=== PATIENT | female | born 1995 | race African-American/Black ===

== ENCOUNTER 2016-05-06 21:14 | Emergency (ER) | payer OTHER ==
[~2016-05-06] VITALS: Ht 152.4 cm; Wt 55.0 kg
[~2016-05-06 21:14] MED LIST: DOXY1CAP91 PO; IBUP-232 PO; METR250 PO; ONDA1TAB17 PO; ORTHTAB4 PO
[2016-05-06 21:16] VITALS: BP 114/70; PULSE 77; RESP 16; TEMP 98.5; O2SAT 100
[2016-05-06] MEDS ORDERED: [UNRECOGNIZED DRUG - OTHER] PO (21:50)
[2016-05-06 22:31] LABS: AUTOMATED NEUTROPHIL # 8.1 TH/MM3 (1.8-7.7); BASOPHIL # 0.1 TH/MM3 (0-0.2); BASOPHIL % 0.9 % (0.0-2.0); EOSINOPHIL # 0.2 TH/MM3 (0-0.4); EOSINOPHIL % 1.5 % (0.0-4.0); HEMATOCRIT 38.2 % (35.0-46.0); HEMO FLAGS DIFF FINAL; LYMPH % 17.8 % (9.0-44.0); MEAN CELL VOLUME 97.4 FL (80.0-100.0); MEAN CORPUSCULAR HEMOGLOBIN 32.1 PG (27.0-34.0); MEAN CORPUSCULAR HGB CONC 32.9 % (32.0-36.0); MONO % 8.5 % (0.0-8.0); NEUT % 71.3 % (16.0-70.0); PLATELET COUNT 306 TH/MM3 (150-450); RED BLOOD COUNT 3.92 MIL/MM3 (4.00-5.30); RED CELL DISTRIBUTION WIDTH 12.6 % (11.6-17.2); WHITE BLOOD COUNT 11.3 TH/MM3 (4.0-11.0)
[2016-05-06 22:36] LABS: BLOOD, URINE NEG (NEG); COMMENT (UR) CULT NOT INDICATED; CULTURE IF INDICATED CULT NOT INDICATED; GLUCOSE,URINE NEG (NEG); KETONE, URINE NEG (NEG); MUCUS URINE MOD /lpf (OCC); NITRITE,URINE NEG (NEG); PH, URINE 6.5 (5.0-8.5); SQUAMOUS EPITHELIAL CELL URINE 6 /hpf (0-5); URINE COLOR YELLOW (YELLW/STRAW)
[2016-05-06 22:46] LABS: BICARBONATE 26.6 MEQ/L (21.0-32.0)
--- NOTE | 2016-05-07 02:27 | PD ---
HPI Chief Complaint: Abdominal Pain Time Seen by Provider: 02:10 Travel History International Travel<30 days: No Contact w/Intl Traveler<30days: No Traveled to known affect area: No History of Present Illness HPI The patient is a 21 year old female who presents to the [facility] emergency department with a history of pelvic pain that she reports began yesterday. She reports that it is worse on the left side and radiates up slightly into her abdomen from the left side. The patient is a with one miscarriage in December 2015. She also reports having a history of PID. She was concerned about the possibility of miscarrying currently or having an ectopic . She reports that she has had nausea and vomiting related to this . She has vomited 4 times today. She denies having any vaginal bleeding. She reports that she does have a thin white vaginal discharge. The patient denies any recent fevers, cough, congestion, neck pain, chest pain, shortness of breath, vomiting, diarrhea, urinary symptoms, or neurologic symptoms. LMP 12/13. She has not had an initial ultrasound in this . [facility] Past Medical History Narrative Medical The patient's past medical history is significant for PID, miscarriage. ?: LMP: 6 WEEKS : 1 Miscarriage: 1 Past Surgical History Narrative Surgical The patient's past surgical history is reportedly none. Social History Alcohol Use: No Tobacco Use: No ("BLACK & MILD") Substance Use: No Allergies-Medications (Allergen,Severity, Reaction): Coded Allergies: No Known Allergies (Unverified , 05/07/16) Reported Meds & Prescriptions Reported Meds & Active Scripts Active Clindamycin (Clindamycin HCl) 300 Mg Cap 300 Mg PO BID 7 Days Reported [Trunatal] 1 Tab PO Narrative Medication . Review of Systems Except as stated in HPI: all other systems reviewed are Neg General / Constitutional: No: Fever Eyes: No: Visual changes HENT: No: Headaches Cardiovascular: No: Chest Pain or Discomfort Respiratory: No: Shortness of Breath Gastrointestinal: Positive: Nausea, Vomiting, Abdominal Pain Genitourinary: Positive: Pelvic Pain, Discharge, No: Urgency, Frequency, Dysuria, Vaginal Bleeding Musculoskeletal: No: Pain Skin: No Rash Neurologic: No: Weakness Psychiatric: No: Depression Endocrine: No: Polydipsia Hematologic/Lymphatic: No: Easy Bruising Physical Exam Narrative General: The patient is a well-developed well-nourished female in no acute distress.. Head and Neck exam: Head is normocephalic atraumatic. Eyes: Pupils are equal round and reactive to light. Nose: Midline septum with pink mucous membranes Mouth: Dentition unremarkable. Moist mucus membranes. Posterior oropharynx is not erythematous. No tonsillar hypertrophy. Uvula midline. Airway patent. Neck: No palpable lymphadenopathy. No nuchal rigidity. No thyromegaly. Cardiovascular: Regular rate and rhythm without murmurs, gallops, or rubs. Lungs: Clear to auscultation bilaterally. No wheezes, rhonchi, or rales. Abdomen: Soft, reported discomfort on palpation the left lower quadrant of the abdomen. No other tenderness on palpation. No guarding, rebound, or rigidity. Negative [place] sign. No tenderness on palpation of McBurney's point. Normal bowel sounds are audible. Extremities: No clubbing, cyanosis, or edema. 2+ pulses in all 4 extremities. Back: No spinous process tenderness to palpation. No costovertebral angle tenderness to palpation. Neurologic Exam: Grossly nonfocal. Skin Exam: No rash noted. Intact skin that is warm and dry. Gynecologic exam: The patient was placed in the dorsal lithotomy position. Her external genitalia were examined. She had no evidence of rash or lesions. The speculum was placed into her vagina and the cervix was identified. She had a physiologic appearing clear white discharge. No cervical friability. On Bimanual exam: she has no cervical motion tenderness. No adnexal tenderness or prominence noted on palpation. No uterine tenderness or enlargement noted on palpation. Data Data Last Documented VS Vital Signs Date Time Temp Pulse Resp B/P Pulse Ox O2 Delivery O2 Flow Rate FiO2 05/06/16 21:16 98.5 77 16 114/70 100 Room Air Orders Complete Blood Count With Diff (05/06/16 21:47) Basic Metabolic Panel (Bmp) (05/06/16 21:47) Urinalysis - C+S If Indicated (05/06/16 21:47) Ed Urine Pregnancytest Poc (05/06/16 21:47) Gc And Chlamydia Pcr (05/07/16 02:28) Complete Rh (05/07/16 02:28) Wet Prep Profile (05/07/16 02:28) Iv Access Insert/Monitor (05/07/16 02:28) Ecg Monitoring (05/07/16 02:28) Sodium Chlor 0.9% 1000 Ml Inj (Ns 1000 M (05/07/16 02:28) Ondansetron Inj (Zofran Inj) (05/07/16 02:30) Beta Hcg (Quant/Titer) (05/06/16 21:52) Us Pelvis (Ques Pr/Ect)W Trans (05/07/16 ) Labs Laboratory Tests Test 05/06/16 05/06/16 05/07/16 05/07/16 21:52 21:55 02:35 03:30 White Blood Count 11.3 TH/MM3 Red Blood Count 3.92 MIL/MM3 Hemoglobin 12.6 GM/DL Hematocrit 38.2 % Mean Corpuscular Volume 97.4 FL Mean Corpuscular Hemoglobin 32.1 PG Mean Corpuscular Hemoglobin 32.9 % Concent Red Cell Distribution Width 12.6 % Platelet Count 306 TH/MM3 Mean Platelet Volume 8.0 FL Neutrophils (%) (Auto) 71.3 % Lymphocytes (%) (Auto) 17.8 % Monocytes (%) (Auto) 8.5 % Eosinophils (%) (Auto) 1.5 % Basophils (%) (Auto) 0.9 % Neutrophils # (Auto) 8.1 TH/MM3 Lymphocytes # (Auto) 2.0 TH/MM3 Monocytes # (Auto) 1.0 TH/MM3 Eosinophils # (Auto) 0.2 TH/MM3 Basophils # (Auto) 0.1 TH/MM3 CBC Comment DIFF FINAL Differential Comment Sodium Level 136 MEQ/L Potassium Level 4.0 MEQ/L Chloride Level 103 MEQ/L Carbon Dioxide Level 26.6 MEQ/L Anion Gap 6 MEQ/L Blood Urea Nitrogen 6 MG/DL Creatinine 0.63 MG/DL Estimat Glomerular Filtration 142 ML/MIN Rate Random Glucose 88 MG/DL Calcium Level 8.6 MG/DL Human Chorionic Gonadotropin, 35536 MIU/ML Quant Urine Color YELLOW Urine Turbidity HAZY Urine pH 6.5 Urine Specific Pana 1.025 Urine Protein TRACE mg/dL Urine Glucose (UA) NEG mg/dL Urine Ketones NEG mg/dL Urine Occult Blood NEG Urine Nitrite NEG Urine Bilirubin NEG Urine Urobilinogen LESS THAN 2.0 MG/DL Urine Leukocyte Esterase NEG Urine WBC 2 /hpf Urine Squamous Epithelial 6 /hpf Cells Urine Mucus MOD /lpf Microscopic Urinalysis Comment CULT NOT INDICATED Clue Cells (Wet Prep) PRESENT Vaginal Trichomonas (Wet Prep) NONE SEEN Vaginal Yeast (Wet Prep) NONE SEEN Blood Type A POSITIVE Rho(D) Type POSITIVE MDM Medical Decision Making Medical Screen Exam Complete: Yes Emergency Medical Condition: Yes Medical Record Reviewed: Yes Interpretation(s) Last Impressions Pelvis Ultrasound 05/07/16 0000 Signed Impressions: Service Date/Time: Saturday, May 07, 2016 02:37 - CONCLUSION: 1. Viable IUP of 6 weeks and 3 days of gestational age. 2. 2 cm solid appearing area adjacent to the left ovary. This is nonspecific but may be a small endometrioma versus hemorrhagic cyst. Mendel Traore MD Differential Diagnosis Ectopic , versus miscarriage, versus cramping related to uterine growth , versus corpus luteum cyst Narrative Course During the course of the patients emergency department visit, the patients history, examination, and differential diagnosis were reviewed with the patient. The patient had IV access obtained and blood work sent for analysis. The patients laboratory studies were reviewed and remarkable for white count of 11.3, hemoglobin 12.6, platelets 306 with 71.3 neutrophils, BMP is remarkable for BUN of 6, beta hCG is 54,876, urinalysis is unremarkable. Wet prep reveals clue cells consistent with bacterial vaginosis as the cause of the patient's discharge. Blood type is A+. Radiology studies were reviewed and remarkable for ultrasound reveals a 6 week and 3 days viable intrauterine . The patient will be discharged home to follow-up with an [facility] ASSIST[facility]. The patient was given a prescription for clindamycin for bacterial vaginosis at discharge. The patient is resting comfortably and feels better, is alert and in no distress. The patients results and examination findings. The repeat examination is unremarkable and benign. The history, exam, diagnostic testing, and current condition do not suggest any significant pathology to warrant further testing, continued ED treatment, admission, or surgical evaluation at this point. The vital signs have been stable. The patient does not have uncontrollable pain, intractable vomiting, or other significant symptoms. The patient's condition is stable and appropriate for discharge. The patient will pursue further outpatient evaluation with a primary care physician or other designated or consulting physician as indicated in the discharge instructions. The patient expressed understanding and was agreeable with this plan. Diagnosis Primary Impression: Bacterial vaginosis Additional Impression: Pelvic pain affecting Referrals: Shayy Jasso MD 1 week Patient Instructions: Bacterial Vaginosis (ED), General Instructions Med/Other Pt SpecificInfo: Prescription(s) given Scripts Clindamycin 300 Mg [id number] Mg PO BID 7 Days Ref 0 Prov:Cate Yanez MD 05/07/16 Disposition: 01 DISCHARGE HOME Condition: Stable Cate Yanez MD May 07, 2016 02:27
[2016-05-07] MEDS ORDERED: SODIUM CHLOR 0.9% 1000 ML INJ 1,000 ML IV ONE (02:28)
[2016-05-07] MEDS ORDERED: ONDANSETRON HCL 4 MG/2 ML VIAL IVP ONE (02:30)
--- NOTE | 2016-05-07 03:36 | RADRPT ---
EXAM DATE/TIME: 05/07/2016 02:37 [place] COMPARISON: No previous studies available for comparison. INDICATIONS : Pelvic pain. LAB(S): Beta-hC MEDICAL HISTORY : . PID. SURGICAL HISTORY : None. ENCOUNTER: Initial ACUITY: 1 day PAIN SCORE: 5/10 LOCATION: Left pelvis MEASUREMENTS: UTERUS: 9.0 x 4.9 x 5.6 cm ENDOMETRIAL STRIPE: 17 mm RIGHT OVARY: 2.9 x 1.8 x 2.0 cm LEFT OVARY: 3.7 x 1.8 x 3.6 cm FINDINGS: UTERUS: There is a gestational sac in the endometrial cavity. There is a pole that measures 6 weeks and 3 days of gestational age. There is a heart beat at 117 beats per minute. The uterus is otherw ise unremarkable. RIGHT OVARY: Ovary contains no mass or significant cystic lesion. Few small liver cysts. LEFT OVARY: There are some follicular cysts associated with the left ovary. Solid appearing area measuring 2.0 cm . This could be a small endometrioma versus hemorrhagic cyst. MISCELLANEOUS: There is free fluid adjacent to the ovaries. CONCLUSION: 1. Viable IUP of 6 weeks and 3 days of gestational age. 2. 2 cm solid appearing area adjacent to the left ovary. This is nonspecific but may be a small endom etrioma versus hemorrhagic cyst. Mendel Traore MD on May 07, 2016 at 3:31 Board Certified Radiologist. This report was verified electronically.
[2016-05-07] MEDS ORDERED: CLIN1CAP6 PO (03:58)
[2016-05-07 04:49] LABS: CHLAMYDIA PCR NOT DETECTED (NOT DETECT); NEISSERIA PCR NOT DETECTED (NOT DETECT)
== END 2016-05-07 05:09 | disposition home or self-care (01) ==
LOC: NEPE 21:14
DX: O23.591 Infection of other part of genital tract in pregnancy, first trimester (principal); N76.0 Acute vaginitis; B96.89 Other specified bacterial agents as the cause of diseases classified elsewhere; R10.2 Pelvic and perineal pain; R11.2 Nausea with vomiting, unspecified; Z87.42 Personal history of other diseases of the female genital tract; Z3A.01 Less than 8 weeks gestation of pregnancy
CPT/HCPCS: 76700; 76817; 80048; 81001; 84702; 84703; 85025; 86901; 87210; 87491; 87591; 96374; 99284; J2405; J7030

== ENCOUNTER 2016-05-14 16:09 | Emergency (ER) | payer OTHER ==
[~2016-05-14] VITALS: Ht 152.4 cm; Wt 56.4 kg
[~2016-05-14 16:09] MED LIST changes: +CLIN1CAP6 PO; -DOXY1CAP91 PO; -IBUP-232 PO; -METR250 PO; -ONDA1TAB17 PO; -ORTHTAB4 PO; +[UNRECOGNIZED DRUG - OTHER] PO
[2016-05-14 16:12] VITALS: BP 121/58; PULSE 72; RESP 12; TEMP 97.9; O2SAT 99
[2016-05-14] MEDS ORDERED: PROM25TA5 PO (16:35)
--- NOTE | 2016-05-14 16:43 | PD ---
HPI Chief Complaint: GI Complaint Time Seen by Provider: 16:20 Travel History International Travel<30 days: No Contact w/Intl Traveler<30days: No Traveled to known affect area: No History of Present Illness HPI The patient was seen and examined in the presence of the nurse. This patient complains of nausea and vomiting. Primarily nausea but occasionally has vomiting. Duration is 2-3 days. Severity is mild to moderate. She is not having abdominal or pelvic pain or vaginal bleeding. She has a intrauterine by ultrasound done recently here on the last visit. Her first care appointment is June 11. No fever. No alleviating factors. [facility] Past Medical History ?: LMP: 03/25/2016 : 1 Miscarriage: 1 Social History Alcohol Use: No Tobacco Use: Yes ("BLACK & MILD") Substance Use: No Allergies-Medications (Allergen,Severity, Reaction): Coded Allergies: No Known Allergies (Unverified , 05/07/16) Reported Meds & Prescriptions Reported Meds & Active Scripts Active Phenergan (Promethazine HCl) 25 Mg Tab 12.5 Mg PO Q6HR PRN Clindamycin (Clindamycin HCl) 300 Mg Cap 300 Mg PO BID 7 Days Review of Systems General / Constitutional: No: Fever Eyes: No: Visual changes HENT: No: Headaches Cardiovascular: No: Chest Pain or Discomfort Respiratory: No: Shortness of Breath Gastrointestinal: Positive: Nausea, Vomiting, No: Abdominal Pain Genitourinary: No: Dysuria Musculoskeletal: No: Pain Skin: No Rash Neurologic: No: Weakness Psychiatric: No: Depression Endocrine: No: Polydipsia Hematologic/Lymphatic: No: Easy Bruising Physical Exam Narrative GENERAL: Well-nourished, well-developed patient in no apparent distress. SKIN: Warm and dry. HEAD: Atraumatic. Normocephalic. EYES: Pupils equal and round. No scleral icterus. No injection or drainage. ENT: No nasal bleeding or discharge. Mucous membranes pink and moist. NECK: Trachea midline. No JVD. CARDIOVASCULAR: Regular rate and rhythm. No murmur appreciated. RESPIRATORY: No accessory muscle use. Clear to auscultation. Breath sounds equal bilaterally. GASTROINTESTINAL: Abdomen soft, non-tender, nondistended. Hepatic and splenic margins not palpable. MUSCULOSKELETAL: No obvious deformities. No clubbing. No cyanosis. No edema. NEUROLOGICAL: Awake and alert. No obvious cranial nerve deficits. Motor grossly within normal limits. Normal speech. PSYCHIATRIC: Appropriate mood and affect; insight and judgment normal. pelvic: cervix closed,no blood,no adnexal tenderness Data Data Last Documented VS Vital Signs Date Time Temp Pulse Resp B/P Pulse Ox O2 Delivery O2 Flow Rate FiO2 05/14/16 16:12 97.9 72 12 121/58 99 MDM Medical Decision Making Medical Screen Exam Complete: Yes Emergency Medical Condition: Yes Medical Record Reviewed: Yes Differential Diagnosis Hyperemesis gravidarum, gastroenteritis, colitis Narrative Course I have reviewed the patient's electronic medical record. Reviewed her last visit here as well as her ultrasound showing IUP Patient's exam is normal. Abdomen is soft and benign and nontender. Vital signs are normal. She is euvolemic I wrote her some Phenergan to use as needed and warned her about potential sedation. She will need to accept risk of taking category C medication Recommend small frequent bland meals and increase fluids. Diagnosis Primary Impression: Nausea and vomiting during prior to 22 weeks gestation Additional Instructions: The patient was advised to follow up with their physician and return if they worsen. The patient was warned about potential sedation for the medications they will receive on prescription. Small frequent bland meals and a lot of fluids Med/Other Pt SpecificInfo: Prescription(s) given Scripts Promethazine (Phenergan)25 Mg Tab12.5 Mg PO Q6HR PRN (NAUSEA OR VOMITING) #20 TAB Ref 0 Prov:Alli Salcido MD 05/14/16 Disposition: 01 DISCHARGE HOME Condition: Stable Alli Salcido MD May 14, 2016 16:43
== END 2016-05-14 17:36 | disposition home or self-care (01) ==
LOC: NEPB 16:09
DX: O21.9 Vomiting of pregnancy, unspecified (principal); Z3A.00 Weeks of gestation of pregnancy not specified
CPT/HCPCS: 99283

== ENCOUNTER → 2016-11-24 | Emergency (ER) | payer OTHER ==
[~2016-11-24] MED LIST changes: +IBUP-232 PO; +LACTATED RINGER'S 1000 ML INJ 1,000 ML IV ONE; +LACTATED RINGER'S 1000 ML INJ 1,000 ML IV SCH; +OXYC1TAB63 PO; +PROM25TA5 PO; +SENN1TAB PO; +TERBUTALINE INJ 1 MG/ML AMP ONE; +TERBUTALINE INJ 1 MG/ML AMP SQ ONE; +TERBUTALINE INJ 1 MG/ML AMP SQ PRN; -[UNRECOGNIZED DRUG - OTHER] PO
--- NOTE | 2016-11-24 08:22 | PD ---
HPI Chief Complaint Contractions Date Seen: Nov 24, 2016 Travel History International Travel<30 Days: No Contact w/Intl Traveler<30Days: No Known Affected Area: No History of Present Illness HPI Patient is a 21 year old at 34-6/7 weeks gestation who presents today for contractions. She has been having Garza Ramirez contractions on and off for the past week, however this morning she woke up with spotting and started nikko every 510 minutes. Contractions last about 12 minutes. She denies any gush or leaking of fluid. Positive movement. She has been having sharp vaginal pains overnight. No other vaginal discharge. care with Dr. Jasso. History Past Medical History Medical History: Denies Significant Hx Obstetric History Obstetric History s/p spontaneous Past Surgical History Surgical History: No Previous Surgery Family History Family History: Negative Social History Alcohol Use: No Tobacco Use: No Substance Abuse: No Allergies-Medications (Allergen,Severity, Reaction): Coded Allergies: No Known Allergies (Unverified , 11/24/16) Home Meds Active Scripts Promethazine (Phenergan)25 Mg Tab12.5 Mg PO Q6HR PRN (NAUSEA OR VOMITING) #20 TAB Ref 0 Prov:Alli Salcido MD 05/14/16 Clindamycin 300 Mg [id number] Mg PO BID 7 Days Ref 0 Prov:Cate Yanez MD 05/07/16 Review of Systems Except as stated in HPI: all other systems reviewed are Neg General / Constitutional: No: Fever, Chills Eyes: No: Blurred Vision, Visual changes HENT: No: Headaches Cardiovascular: No: Chest Pain or Discomfort, Palpitations Respiratory: No: Short of Breath Gastrointestinal: No: Nausea, Vomiting Genitourinary: Pelvic Pain, Vaginal Bleeding, No: Dysuria, Discharge Musculoskeletal: No: Edema Psychiatric: No: Substance Abuse Physical Exam Narrative GENERAL: Well-nourished, well-developed patient. SKIN: Warm and dry. HEAD: Normocephalic and atraumatic. EYES: No scleral icterus. No injection or drainage. ENT: No nasal drainage noted. Mucous membranes pink. Airway patent. NECK: Supple, trachea midline. No JVD. CARDIOVASCULAR: Regular rate and rhythm without murmurs, gallops, or rubs. RESPIRATORY: Breath sounds equal bilaterally. No accessory muscle use. ABDOMEN/GI: Abdomen soft, non-tender, bowel sounds present, no rebound, no guarding Gravid to 34 weeks size GENITOURINARY: External Genitalia: intact and normal in appearance BUS glands: normal Cervix: posterior Dilatation: 0-1 Effacement: 0 Station: -3 Presentation: vertex Membranes: intact Uterine Contractions: q1-3min FHT's: Category: I Baseline: 140 Reactive: + Variability: moderate Decels: none EXTREMITIES: No cyanosis or edema. BACK: Nontender without obvious deformity. NEUROLOGICAL: Awake and alert. Motor and sensory grossly within normal limits. Normal speech. Data Data Vital Signs Reviewed: Yes MDM Medical Record Reviewed: Yes Narrative Course / MDM 21 year old at 34-6/7 weeks gestation. 1. IUP- Category I tracing, reassuring. Continue to monitor. 2. Contractions- No cervical dilation noted. Will give terbutaline 0.25mg SQ. dw Dr. Hammond Addendum: Contractions persisting despite Terbutaline. Will give 1L IV bolus of LR and check for cervical change in 1 hr. No cervical change noted after 1 hour. Continued contractions q3min. Will give another dose of Terbutaline 0.25mg SQ. Bedside US reassuring, EFW 5lbs 2oz Will discharge home. Diagnosis Diagnosis: Primary Impression: contractions Additional Impression: 34 weeks gestation of Disposition: DISCHARGE HOME Condition: Stable Departure Forms: Tests/Procedures, Work Release Corrine Stratton MD, R3 Nov 24, 2016 08:22
--- NOTE | 2016-11-24 11:20 | PD ---
History of Present Illness Date Seen: Nov 24, 2016 History of Present Illness Seen and OB ED baby 35 weeks tomorrow and having some contractions. She is receiving IV fluid subcutaneous her ran sedation IV. Ultrasound was done in OB ED this shows a 34 weeks size male fetus vertex weight is a 2316 g. 2 ounces. Adequate amniotic fluid noted. The fundal grade 2 placenta. Anatomy scan on baby. Baby is active on scan Julio Cesar Madden II, MD Nov 24, 2016 11:20
== END | disposition home or self-care (01) ==
LOC: HOBED 07:34
DX: O62.9 Abnormality of forces of labor, unspecified (principal); O26.853 Spotting complicating pregnancy, third trimester; Z3A.34 34 weeks gestation of pregnancy
CPT/HCPCS: 59025; 76815; 96372; 96374; 99285; J3010; J3105; J7120

== ENCOUNTER 2016-12-23 01:55 | Inpatient (IN) | payer OTHER ==
[~2016-12-23] VITALS: Ht 154.9 cm; Wt 68.9 kg
[2016-12-23] VITALS (77 sets, daily range): BP systolic 92–142; BP diastolic 36–82; PULSE 66–195; RESP 16–20; TEMP 98–99.4; O2SAT 98–100
[~2016-12-23 01:55] MED LIST changes: -IBUP-232 PO; -LACTATED RINGER'S 1000 ML INJ 1,000 ML IV ONE; -LACTATED RINGER'S 1000 ML INJ 1,000 ML IV SCH; -OXYC1TAB63 PO; -SENN1TAB PO; -TERBUTALINE INJ 1 MG/ML AMP ONE; -TERBUTALINE INJ 1 MG/ML AMP SQ ONE; -TERBUTALINE INJ 1 MG/ML AMP SQ PRN
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
[2016-12-23] MEDS: LACTATED RINGER'S 1000 ML INJ 1,000 ML IV SCH ×3 (02:46→06:41)
[2016-12-23] MEDS ORDERED: LACTATED RINGER'S 1000 ML INJ 1,000 ML IV PRN (02:46)
[2016-12-23 02:59] LABS: AUTOMATED NEUTROPHIL # 11.4 TH/MM3 (1.8-7.7); BASOPHIL # 0.1 TH/MM3 (0-0.2); BASOPHIL % 0.5 % (0.0-2.0); EOSINOPHIL # 0.1 TH/MM3 (0-0.4); HEMATOCRIT 30.6 % (35.0-46.0); HEMO FLAGS DIFF FINAL; LYMPH % 11.1 % (9.0-44.0); LYMPHOCYTE # 1.6 TH/MM3 (1.0-4.8); MEAN CELL VOLUME 98.1 FL (80.0-100.0); MEAN CORPUSCULAR HEMOGLOBIN 33.6 PG (27.0-34.0); MEAN CORPUSCULAR HGB CONC 34.3 % (32.0-36.0); MONO % 8.5 % (0.0-8.0); NEUT % 78.9 % (16.0-70.0); PLATELET COUNT 226 TH/MM3 (150-450); RED BLOOD COUNT 3.12 MIL/MM3 (4.00-5.30); RED CELL DISTRIBUTION WIDTH 12.6 % (11.6-17.2); WHITE BLOOD COUNT 14.5 TH/MM3 (4.0-11.0)
[2016-12-23] MEDS ORDERED: ONDANSETRON HCL 4 MG/2 ML VIAL IV PRN (03:00)
[2016-12-23] MEDS ORDERED: CITRIC ACID-SODIUM CITRATE LIQ 30 ML UDC PO SCH (03:00)
[2016-12-23] MEDS ORDERED: MINERAL OIL 10 ML VIAL TOPICAL PRN (03:00)
[2016-12-23] MEDS ORDERED: LIDOCAINE HCL 1% 50 ML VIAL INFIL PRN (03:00)
[2016-12-23] MEDS ORDERED: SODIUM CHLORID 0.9% 500 ML INJ 500 ML IV PRN (03:00)
[2016-12-23] MEDS ORDERED: OXYTOCIN 30 UNITS-500ML PREMIX 500 ML IV ONE ×2 (03:00→13:30)
[2016-12-23] MEDS ORDERED: LIDOCAINE HCL 1% 50 ML VIAL I-DERMAL PRN (03:00)
[2016-12-23 03:04] LABS: BLOOD, URINE MOD (NEG); COMMENT (UR) CULT NOT INDICATED; CULTURE IF INDICATED CULT NOT INDICATED; GLUCOSE,URINE NEG (NEG); KETONE, URINE 10 mg/dL (NEG); MUCUS URINE FEW /lpf (OCC); NITRITE,URINE NEG (NEG); SQUAMOUS EPITHELIAL CELL URINE 3 /hpf (0-5); URINE COLOR YELLOW (YELLW/STRAW)
[2016-12-23] MEDS ORDERED: SODIUM CHLOR 0.9% 1000 ML INJ 1,000 ML IV PRN (03:06)
[2016-12-23] MEDS ORDERED: fentaNYL 2MCG-BUPIV 0.125% INJ 100 ML ONE ×2 (03:07→09:01)
[2016-12-23] MEDS ORDERED: OXYTOCIN 30 UNITS/NS 500ML PREMIX IV SCH (03:30)
[2016-12-23] MEDS ORDERED: ePHEDrine/NS 25 MG/5 ML SYR ONE (03:50)
[2016-12-23] MEDS ORDERED: TERBUTALINE INJ 1 MG/ML AMP ONE (07:31)
--- NOTE | 2016-12-23 07:50 | PD.LABORPN ---
Subjective Subjective comfortable with epidural on O2 mask with rebreather for run of lates currently resolved Objective Vital Signs Vital Signs Date Time Temp Pulse Resp B/P (MAP) Pulse Ox O2 Delivery O2 Flow Rate FiO2 12/23/16 07:30 86 121/69 (86) 12/23/16 07:00 75 119/55 (76) 12/23/16 06:46 18 12/23/16 06:45 90 120/74 (89) 12/23/16 06:30 97 106/61 (76) 12/23/16 06:18 86 107/60 (76) 12/23/16 06:00 88 107/63 (78) 12/23/16 05:52 20 12/23/16 05:45 86 101/56 (71) 12/23/16 05:30 85 109/61 (77) 12/23/16 05:15 117/67 (84) 12/23/16 05:15 81 12/23/16 05:00 90 12/23/16 05:00 117/66 (83) 12/23/16 04:54 98.5 20 12/23/16 04:45 90 115/66 (82) 12/23/16 04:30 73 106/47 (66) 12/23/16 04:15 68 12/23/16 04:15 115/55 (75) 12/23/16 04:00 74 110/56 (74) 12/23/16 04:00 18 12/23/16 03:53 66 103/45 (64) 12/23/16 03:51 72 96/45 (62) 12/23/16 03:50 99/45 (63) 12/23/16 03:50 77 12/23/16 03:47 99/36 (57) 12/23/16 03:47 79 12/23/16 03:46 99/58 (72) 12/23/16 03:46 70 12/23/16 03:38 83 114/60 (78) 12/23/16 03:31 93 119/65 (83) 12/23/16 03:25 96 12/23/16 03:25 96 135/78 (97) 12/23/16 03:21 95 136/78 (97) 12/23/16 03:20 104 12/23/16 03:15 106 131/82 (98) 12/23/16 03:15 20 12/23/16 03:10 86 142/75 (97) 12/23/16 03:10 88 12/23/16 03:07 135/79 (97) 12/23/16 03:07 20 Objective 5/50/-1 not well applied arom meconium head eased onto cervix OP position with asynclitism EFW 7 1/2 category 2-- bears watching Weeks Gestation: 39 Gest Age Assessed Date: Dec 23, 2016 Gest Age Assessed Time: 07:49 Pt started active labor?: Yes Active labor start date: Dec 23, 2016 Active labor start time: 07:49 Medical induction of labor?: No Artificial rupture of membrane: Yes Artificial ROM date: Dec 23, 2016 Artifical ROM time: 07:49 Assessment/Plan Assessment and Plan not clear if will tolerate active labor off pitocin for now see if descends in proper position with reassuring strip at this moment some mild variables at this point-- not late in nature at this time Nithya Alves MD Dec 23, 2016 07:50
[2016-12-23] MEDS ORDERED: OXYTOCIN 10 UNIT/ML AMP ONE (12:10)
[2016-12-23] MEDS ORDERED: ceFAZolin INJ 1,000 MG VIAL ONE (12:11)
--- NOTE | 2016-12-23 12:14 | PD.LABORPN ---
Subjective Subjective comfortable with epidural not feeling contractions Objective Vital Signs Vital Signs Date Time Temp Pulse Resp B/P (MAP) Pulse Ox O2 Delivery O2 Flow Rate FiO2 12/23/16 11:40 95 12/23/16 11:35 91 12/23/16 11:34 74 103/72 (82) 12/23/16 11:32 93 92/70 (77) 12/23/16 11:30 96 12/23/16 11:25 104 12/23/16 11:24 195 103/70 (81) 12/23/16 11:20 103 12/23/16 11:15 104 12/23/16 11:10 98 12/23/16 11:05 109 12/23/16 11:00 114 12/23/16 10:55 104 12/23/16 10:50 99 12/23/16 10:45 95 12/23/16 10:40 95 12/23/16 10:37 99.3 12/23/16 10:35 96 12/23/16 10:30 90 12/23/16 10:25 87 12/23/16 10:20 91 12/23/16 10:15 85 12/23/16 10:10 80 12/23/16 10:05 97 12/23/16 10:00 102 12/23/16 09:55 99 12/23/16 09:50 83 12/23/16 09:45 95 12/23/16 09:31 92 134/67 (89) 12/23/16 08:45 17 12/23/16 08:15 18 12/23/16 08:08 98.6 12/23/16 08:00 81 113/56 (75) 12/23/16 07:45 16 12/23/16 07:30 86 121/69 (86) 12/23/16 07:00 75 119/55 (76) 12/23/16 06:46 17 12/23/16 06:46 18 12/23/16 06:45 90 120/74 (89) 12/23/16 06:30 97 106/61 (76) 12/23/16 06:18 86 107/60 (76) 12/23/16 06:00 88 107/63 (78) 12/23/16 05:52 20 12/23/16 05:45 86 101/56 (71) 12/23/16 05:30 85 109/61 (77) 12/23/16 05:15 117/67 (84) 12/23/16 05:15 81 12/23/16 05:00 90 12/23/16 05:00 117/66 (83) 12/23/16 04:54 98.5 20 12/23/16 04:45 90 115/66 (82) 12/23/16 04:30 73 106/47 (66) 12/23/16 04:15 68 12/23/16 04:15 115/55 (75) Objective minute decel likely due to tachysystole, given terb now baby is very tachycardic 180's - 200's have tried position changes, amnio infusion, and other resuscitative efforts. cervix 9 cm -2 asynclitic and possibly OP EFW 6 1/2 pounds Weeks Gestation: 39 Gest Age Assessed Date: Dec 23, 2016 Gest Age Assessed Time: 12:12 Pt started active labor?: Yes Active labor start date: Dec 23, 2016 Active labor start time: 07:49 Medical induction of labor?: No Artificial rupture of membrane: Yes Artificial ROM date: Dec 23, 2016 Artifical ROM time: 07:49 Assessment/Plan Assessment and Plan discussed with Leigh and family risks and benefits of attempting vaginal delivery in next hour vs.proceeding with expedient section tachycardia and lack of descent suggest latter is preferable reviewed indications and will proceed in 20 minutes. Nithya Alves MD Dec 23, 2016 12:14
[2016-12-23] MEDS ORDERED: ACETAMINOPHEN 1000 MG/100 ML 100 ML IV ONE (12:50)
[2016-12-23 13:15] LABS: BLOOD GAS BASE EXCESS -1.4 mmol/L (-2-2); BLOOD GAS O2 HGB SATURATION 36 % (90-100); CORD BLOOD GAS HCO3 24 mmol/L (21-29); CORD BLOOD GAS PCO2 52 mmHG (34-78); CORD BLOOD GAS PH 7.29 (7.14-7.42); CORD BLOOD GAS PO2 20 mmHG (3.0-40.0); DRAW SITE CORD BLOOD; STAT NO
[2016-12-23] MEDS ORDERED: ONDANSETRON HCL 4 MG/2 ML VIAL ONE (13:26)
[2016-12-23] MEDS ORDERED: MORPHINE SULFATE PF 5 MG/10 ML VIAL ONE (13:26)
[2016-12-23] MEDS ORDERED: ZOLPIDEM TARTRATE 5 MG TAB PO PRN (13:30)
[2016-12-23] MEDS ORDERED: oxyCODONE/ACETAMINOPHEN 5 MG/325 MG TAB PO PRN (13:30)
[2016-12-23] MEDS ORDERED: SODIUM CHLORIDE 0.9% FLUSH 10 ML FLUSH IV FLUSH PRN (13:30)
[2016-12-23] MEDS ORDERED: ACETAMINOPHEN 325 MG TAB PO PRN (13:30)
[2016-12-23] MEDS ORDERED: ONDANSETRON HCL 4 MG/2 ML VIAL IV PUSH PRN (13:30)
--- NOTE | 2016-12-23 13:41 | PD.OP ---
Operative Report Date of Surgery: Dec 23, 2016 Preoperative Diagnosis: (1) Persistent occipitoposterior position (2) Failure to progress in labor (3) 39 weeks gestation of Postoperative Diagnosis: (1) Bandl's ring (2) Persistent occipitoposterior position (3) Failure to progress in labor (4) 39 weeks gestation of Procedure: Primary low transverse section Anesthesia: Epidural Surgeon: Nithya Alves MD Obstetrics Specialist(s): Merari Swanson Resident Surgeon: Corrine Stratton MD Operation and Findings: Preoperative Diagnosis: 1. Primary low transverse delivery 2. Persistent occipitoposterior position 3. Intrauterine at 39-0/7 weeks gestation Postoperative Diagnosis: 1. Primary low transverse delivery 2. Persistent occipitoposterior position 3. Intrauterine at 39-0/7 weeks gestation 4. Bandl's Ring Procedure Primary low transverse section Anesthesia Epidural Surgeon Nithya Alves MD Co-Surgeon Corrine Stratton MD Findings Normal male infant 3230g with Apgars 8 and 9. Normal fallopian tubes, normal ovaries, normal uterus. Bandl's ring. Complications None. Counts Correct Estimated Blood Loss 500mL Fluids Crystalloids. Disposition The patient tolerated procedure well, went to recovery room in good condition. Procedure in Detail After informed consent was obtained the patient was taken to the operating room where her epidural anesthesia was found to be adequate. A Mobley catheter was already in place. She was then prepared and draped in the normal sterile fashion in the dorsal supine position with a leftward tilt. A Pfannenstiel/midline skin incision was then made with the scalpel and carried through to the underlying layer of fascia. The fascia was incised in the midline and extended laterally with the Sam scissors. The incision was then grasped with the Mary Ann clamps, elevated and the underlying rectus muscles dissected off bluntly/sharply with the Sam scissors. Attention was then turned to the inferior aspect of this incision which, in a similar fashion, was grasped, tented up with the Mary Ann clamps, and the rectus muscles dissected off bluntly/sharply with the Sam scissors. The rectus muscles were then in the midline, and the peritoneum identified, tented up, and entered bluntly using manual dissection. The peritoneal incision was then extended superiorly and inferiorly with good visualization of the bladder. A bladder flap was created then the bladder blade was inserted and the lower uterine segment was incised in a transverse fashion with the scalpel. The uterine incision was then extended laterally digitally. Meconium fluid was noted and the infant's head was noted to be in left occiput posterior presentation. The bladder blade was removed. A nuchal cord was reduced and the 's head delivered with the assistance of a Kiwi vacuum with one pop-off. Delivery of the was complicated by a Bandl's ring, however the was delivered atraumatically. Cord clamping was delayed for 45 seconds with active milking of the cord, then the cord was cut and the was handed off the field to the awaiting baby nurse. The placenta was then removed, the uterus exteriorized, and cleared of all clots and debris. The uterine incision was repaired with 0 Chromic in a running fashion. A second layer of the same suture was used in an imbricating fashion to obtain excellent hemostasis. The abdominal cavity was cleaned with normal saline irrigation and a moist lap and the uterus was replaced into the abdomen. The gutters were cleared of all clots and debris and the hysterotomy site was noted to be hemostatic. The muscle was then reapproximated with 3-0 Vicryl and the fascia was then reapproximated with 0 Vicryl in a running fashion. The subcutaneous tissue was closed with 3-0 Plain and the skin was closed with 4-0 Monocryl in a subcuticular fashion noting excellent hemostasis. The patient tolerated the procedure well. Sponge, lap and needle counts were correct times two. The patient was taken to the recovery room in stable condition. Corrine Stratton MD, R3 Dec 23, 2016 13:41
[2016-12-23] MEDS ORDERED: ePHEDrine/NS 25 MG/5 ML SYR IV PRN (15:30)
[2016-12-23] MEDS ORDERED: fentaNYL 2MCG-BUPIV 0.125% 100 ML EPIDURAL SCH (15:30)
[2016-12-23] MEDS ORDERED: EPIDURAL-DIPHENHYDRAMINE HCL 50 MG CAP PO PRN (15:30)
[2016-12-23] MEDS ORDERED: EPIDURAL-DO NOT ADMINISTER ANTICOAGULANTS PRN (15:30)
[2016-12-23] MEDS ORDERED: NO SYSTEM NARCOTICS PRN (15:30)
[2016-12-23] MEDS ORDERED: EPIDURAL-NALOXONE HCL 0.4 MG/ML AMP IV PRN (15:30)
[2016-12-23] MEDS ORDERED: EPIDURAL-DIPHENHYDRAMINE HCL 50 MG/ML VIAL IV PUSH PRN (15:30)
[2016-12-23] MEDS ORDERED: DO NOT ADMINISTER ANTICOAGULANTS PRN (15:30)
[2016-12-23] MEDS ORDERED: EPIDURAL-NO SYSTEMIC NARCOTICS PRN (15:30)
[2016-12-23] MEDS: IBUPROFEN 600 MG TAB PO PRN (17:18)
[2016-12-23] MEDS ORDERED: LACTATED RINGER'S 1000 ML INJ 1,000 ML IV SCH (18:19)
[2016-12-23] MEDS ORDERED: SODIUM CHLORIDE 0.9% FLUSH 10 ML FLUSH IV FLUSH SCH (21:00)
[2016-12-23] MEDS: oxyCODONE/ACETAMINOPHEN 5 MG/325 MG TAB PO PRN (21:11)
[2016-12-23] MEDS: DOCUSATE SODIUM 50 MG/SENNA 8.6 MG TAB PO PRN (21:11)
[2016-12-23] MEDS ORDERED: OXYTOCIN 30 UNITS-500ML PREMIX 500 ML IV PRN (23:30)
[2016-12-24 00:15] VITALS: BP 121/73; PULSE 81; RESP 16; TEMP 98.3
[2016-12-24] MEDS: IBUPROFEN 600 MG TAB PO PRN ×4 (01:19→23:13)
[2016-12-24] MEDS: oxyCODONE/ACETAMINOPHEN 5 MG/325 MG TAB PO PRN ×5 (01:19→23:16)
[2016-12-24 04:00] VITALS: BP 105/72; PULSE 79; RESP 16; TEMP 98.1
[2016-12-24 04:27] LABS: AUTOMATED NEUTROPHIL # 14.8 TH/MM3 (1.8-7.7); BASOPHIL % 0.2 % (0.0-2.0); EOSINOPHIL # 0.1 TH/MM3 (0-0.4); EOSINOPHIL % 0.7 % (0.0-4.0); HEMATOCRIT 28.6 % (35.0-46.0); HEMO FLAGS DIFF FINAL; LYMPH % 7.6 % (9.0-44.0); LYMPHOCYTE # 1.4 TH/MM3 (1.0-4.8); MEAN CELL VOLUME 99.1 FL (80.0-100.0); MEAN CORPUSCULAR HEMOGLOBIN 33.4 PG (27.0-34.0); MEAN CORPUSCULAR HGB CONC 33.7 % (32.0-36.0); MONO % 9.2 % (0.0-8.0); NEUT % 82.3 % (16.0-70.0); PLATELET COUNT 187 TH/MM3 (150-450); RED BLOOD COUNT 2.89 MIL/MM3 (4.00-5.30); RED CELL DISTRIBUTION WIDTH 12.7 % (11.6-17.2); WHITE BLOOD COUNT 17.9 TH/MM3 (4.0-11.0)
[2016-12-24 08:10] VITALS: BP 127/73; PULSE 78; RESP 18; TEMP 98.3
--- NOTE | 2016-12-24 09:41 | HHI.OB ---
Subjective Post Operative Day: 1 Remarks POD#1, stable,doing well Objective Vitals/I&O Vital Signs Date Time Temp Pulse Resp B/P (MAP) Pulse Ox O2 Delivery O2 Flow Rate FiO2 12/24/16 08:10 98.3 78 18 127/73 (91) 12/24/16 04:00 98.1 79 16 105/72 (83) 12/24/16 00:15 98.3 81 16 121/73 (89) 12/23/16 20:16 98.0 79 18 127/74 (91) 12/23/16 15:50 98.6 12/23/16 15:02 99.4 12/23/16 15:02 93 16 127/66 (86) 12/23/16 14:20 98.7 12/23/16 14:20 98 18 125/63 (83) 100 12/23/16 14:10 18 12/23/16 14:04 94 118/59 (78) 99 12/23/16 13:46 135/63 (87) 12/23/16 13:45 113 18 98 12/23/16 13:40 118 18 99 12/23/16 13:40 117/71 (86) 12/23/16 13:23 19 12/23/16 13:23 98.9 121 100 12/23/16 12:10 109 12/23/16 12:05 99 12/23/16 12:00 90 12/23/16 11:40 95 12/23/16 11:35 91 12/23/16 11:34 74 103/72 (82) 12/23/16 11:32 93 92/70 (77) 12/23/16 11:30 96 12/23/16 11:25 104 12/23/16 11:24 195 103/70 (81) 12/23/16 11:20 103 12/23/16 11:15 104 12/23/16 11:10 98 12/23/16 11:05 109 12/23/16 11:00 114 12/23/16 10:55 104 12/23/16 10:50 99 12/23/16 10:45 95 12/23/16 10:40 95 12/23/16 10:37 99.3 12/23/16 10:35 96 12/23/16 10:30 90 12/23/16 10:25 87 12/23/16 10:20 91 12/23/16 10:15 85 12/23/16 10:10 80 12/23/16 10:05 97 12/23/16 10:00 102 12/23/16 09:55 99 12/23/16 09:50 83 12/23/16 09:45 95 Result Diagram: 12/24/16 0405 Objective Remarks GENERAL: Well-nourished, well-developed patient. CARDIOVASCULAR: Regular rate and rhythm without murmurs, gallops, or rubs. RESPIRATORY: Breath sounds equal bilaterally. No accessory muscle use. ABDOMEN/GI: Abdomen soft, non-tender, bowel sounds present. Incision: Clean, dry and intact. Fundus: Firm, non-tender at umbilicus. GENITOURINARY: Light to moderate bleeding. EXTREMITIES: No cyanosis or edema, non-tender, without signs of DVT. Medications and IVs Current Medications Medications (Trade) Dose Ordered Sig/Marshall Route Start Time Stop Time Status Last Admin (Xylocaine 1% Inj (50 ml)) 0.1 ml UNSCH X1 PRN I-DERMAL 12/23/16 03:00 12/26/16 02:59 (Bicitra Liq) 30 ml [employer] PO 12/23/16 03:00 12/27/16 02:59 12/23/16 14:27 (Xylocaine 1% Inj (50 ml)) 10 ml UNSCH X1 PRN INFIL 12/23/16 03:00 12/25/16 02:59 Lactated Ringer's 1,000 ml @ 100 mls/hr Q10H IV 12/23/16 18:19 12/24/16 14:18 12/23/16 21:00 Oxytocin 500 ml @ 100 mls/hr UNSCH X1 PRN IV 12/23/16 23:30 12/24/16 23:29 (NS Flush) 2 ml BID IV FLUSH 12/23/16 21:00 (NS Flush) 2 ml UNSCH PRN IV FLUSH 12/23/16 13:30 (Mylicon Chew) 80 mg QID PRN PO 12/23/16 13:30 (Tylenol) 650 mg Q6H PRN PO 12/23/16 13:30 (Motrin) 600 mg Q6H PRN PO 12/23/16 13:30 12/24/16 01:19 (Percocet 5-325 Mg) 1 tab Q4H PRN PO 12/23/16 13:30 (Percocet 5-325 Mg) 2 tab Q4H PRN PO 12/23/16 13:30 12/24/16 06:13 (Denia-Colace) 2 tab Q12H PRN PO 12/23/16 13:30 12/23/16 21:11 (Ambien) 5 mg HS PRN PO 12/23/16 13:30 (M-M-R Ii Inj) 0.5 ml ONCE ONCE SQ 12/24/16 16:00 12/24/16 16:01 (Boostrix Inj) 0.5 ml ONCE ONCE IM 12/24/16 16:00 12/24/16 16:01 (Zofran Inj) 4 mg Q6H PRN IV PUSH 12/23/16 13:30 Miscellaneous Information No systemic narcotics to be given except... UNSCH PRN .XX 12/23/16 15:30 12/24/16 15:29 Miscellaneous Information DO NOT ADMINISTER ANY ANTICOAGUL... UNSCH PRN .XX 12/23/16 15:30 12/24/16 15:29 Fentanyl/ Bupivacaine HCl 100 ml @ 12 mls/hr TITRATE EPIDURAL 12/23/16 15:30 (ePHEDrine/NS 25 MG/5 ML SYR) 10 mg UNSCH PRN IV 12/23/16 15:30 12/24/16 15:29 Miscellaneous Information NO SYSTEMIC NARCOTICS TO BE GIVEN FO... UNSCH PRN .XX 12/23/16 15:30 12/24/16 15:29 (Narcan Inj) 0.4 mg UNSCH PRN IV 12/23/16 15:30 12/24/16 15:29 (Benadryl Inj) 25 mg Q6H PRN IV PUSH 12/23/16 15:30 12/24/16 15:29 (Benadryl) 50 mg Q6H PRN PO 12/23/16 15:30 12/24/16 15:29 Miscellaneous Information ALL NURSING DEPARTMENTS UNSCH PRN .XX 12/23/16 15:30 12/24/16 15:29 Assessment/Plan Assessment and Plan POD#1, normal post-op, anticipate discharge for day 2-3 Discharge Planning routine Attending Attestation Seen by Geovanny Obrien MD Dec 24, 2016 09:41
[2016-12-24] MEDS: DOCUSATE SODIUM 50 MG/SENNA 8.6 MG TAB PO PRN ×2 (10:34→23:16)
[2016-12-24 11:45] VITALS: BP 118/76; PULSE 74; RESP 18; TEMP 98.1
[2016-12-24] MEDS ORDERED: MEASLES, MUMPS, RUBELLA VACCINE 0.5 ML VIAL SQ ONE (16:00)
[2016-12-24] MEDS ORDERED: DIPHTH/TETANUS/ACEL PERTUSSIS (BOOSTER) 0.5 ML VIAL/PFS IM ONE (16:00)
[2016-12-24 20:15] VITALS: BP 121/83; PULSE 93; RESP 16; TEMP 98.1
[2016-12-25 07:30] VITALS: BP 108/84; PULSE 77; RESP 16; TEMP 98
[2016-12-25] MEDS: oxyCODONE/ACETAMINOPHEN 5 MG/325 MG TAB PO PRN ×2 (07:31→19:21)
[2016-12-25] MEDS: IBUPROFEN 600 MG TAB PO PRN ×2 (07:31→15:02)
--- NOTE | 2016-12-25 09:14 | HHI.OB ---
Subjective Post Operative Day: 2 Remarks Rough night with nursing sleeping now moving comfortably lochia not excessive Objective Vitals/I&O Vital Signs Date Time Temp Pulse Resp B/P (MAP) Pulse Ox O2 Delivery O2 Flow Rate FiO2 12/25/16 07:30 98.0 16 12/25/16 07:30 77 108/84 (92) 12/24/16 20:15 98.1 93 16 121/83 (96) 12/24/16 11:45 98.1 12/24/16 11:45 74 18 118/76 (90) Result Diagram: 12/24/16 0405 Objective Remarks GENERAL: Well-nourished, well-developed patient. CARDIOVASCULAR: Regular rate and rhythm without murmurs, gallops, or rubs. RESPIRATORY: Breath sounds equal bilaterally. No accessory muscle use. ABDOMEN/GI: Abdomen soft, non-tender, bowel sounds present. Incision: Clean, dry and intact. Fundus: Firm, non-tender at umbilicus. GENITOURINARY: Light to moderate bleeding. EXTREMITIES: No cyanosis or edema, non-tender, without signs of DVT. Medications and IVs Current Medications Medications (Trade) Dose Ordered Sig/Marshall Route Start Time Stop Time Status Last Admin (Xylocaine 1% Inj (50 ml)) 0.1 ml UNSCH X1 PRN I-DERMAL 12/23/16 03:00 12/26/16 02:59 (Bicitra Liq) 30 ml FOREST MANAGEMENT PROFESSOR PO 12/23/16 03:00 12/27/16 02:59 12/23/16 14:27 (NS Flush) 2 ml BID IV FLUSH 12/23/16 21:00 (NS Flush) 2 ml UNSCH PRN IV FLUSH 12/23/16 13:30 (Mylicon Chew) 80 mg QID PRN PO 12/23/16 13:30 (Tylenol) 650 mg Q6H PRN PO 12/23/16 13:30 (Motrin) 600 mg Q6H PRN PO 12/23/16 13:30 12/25/16 07:31 (Percocet 5-325 Mg) 1 tab Q4H PRN PO 12/23/16 13:30 (Percocet 5-325 Mg) 2 tab Q4H PRN PO 12/23/16 13:30 12/25/16 07:31 (Denia-Colace) 2 tab Q12H PRN PO 12/23/16 13:30 12/24/16 23:16 (Ambien) 5 mg HS PRN PO 12/23/16 13:30 (Zofran Inj) 4 mg Q6H PRN IV PUSH 12/23/16 13:30 Fentanyl/ Bupivacaine HCl 100 ml @ 12 mls/hr TITRATE EPIDURAL 12/23/16 15:30 Assessment/Plan Assessment and Plan POD#2 normal post-op, discharge in am after one more day with support RTO 1 week Discharge Planning routine Nithya Alves MD Dec 25, 2016 09:14
[2016-12-25] MEDS ORDERED: OXYC1TAB63 PO (09:16)
--- NOTE | 2016-12-25 09:16 | HHI.DCPOC ---
Discharge Care Plan Report Symptoms to Your Doctor -Temperature above 100.5 degrees -Redness, of incision or excessive or foul smelling drainage -Unusual pain or calf pain -Increased vaginal bleeding -Painful or difficulty urinating -Feelings of extreme sadness or anxiety after 2 weeks Goals to Promote Your Health * To prevent worsening of your condition and complications * To maintain your health at the optimal level Directions to Meet Your Goals Take your medications as prescribed Follow your dietary instruction Follow activity as directed Ensure plenty of rest for recovery Drink fluids for hydration Keep your appointments as scheduled Take your immunizations and boosters as scheduled If your symptoms worsen call your PCP, if no PCP go to Urgent Care Center or Emergency Room Smoking is Dangerous to Your Health. Avoid second hand smoke Call the 24-hour crisis hotline for domestic abuse at Nithya Alves MD Dec 25, 2016 09:16
[2016-12-25 14:30] VITALS: BP 133/81; PULSE 79; RESP 16; TEMP 98.7
[2016-12-25 19:10] VITALS: BP 133/90; PULSE 74; RESP 16; TEMP 98.4
[2016-12-26] MEDS: IBUPROFEN 600 MG TAB PO PRN ×2 (00:15→08:34)
[2016-12-26] MEDS: SIMETHICONE 80 MG CHEWABLE TAB PO PRN ×2 (00:15→08:33)
[2016-12-26] MEDS: DOCUSATE SODIUM 50 MG/SENNA 8.6 MG TAB PO PRN (00:15)
[2016-12-26] MEDS: oxyCODONE/ACETAMINOPHEN 5 MG/325 MG TAB PO PRN ×3 (00:15→08:33)
[2016-12-26 08:00] VITALS: BP 126/75; PULSE 103; RESP 16; TEMP 98
--- NOTE | 2016-12-26 08:07 | HHI.OB ---
Subjective Post Operative Day: 3 Remarks doing well Objective Vitals/I&O Vital Signs Date Time Temp Pulse Resp B/P (MAP) Pulse Ox O2 Delivery O2 Flow Rate FiO2 12/25/16 19:10 98.4 74 16 12/25/16 19:10 133/90 (104) 12/25/16 14:30 98.7 79 16 133/81 (98) Result Diagram: 12/24/16 5446 Objective Remarks GENERAL: Well-nourished, well-developed patient. CARDIOVASCULAR: Regular rate and rhythm without murmurs, gallops, or rubs. RESPIRATORY: Breath sounds equal bilaterally. No accessory muscle use. ABDOMEN/GI: Abdomen soft, non-tender, bowel sounds present. Incision: Clean, dry and intact. Fundus: Firm, non-tender at umbilicus. GENITOURINARY: Light to moderate bleeding. EXTREMITIES: No cyanosis or edema, non-tender, without signs of DVT. Medications and IVs Current Medications Medications (Trade) Dose Ordered Sig/Marshall Route Start Time Stop Time Status Last Admin (Bicitra Liq) 30 ml BUSINESS PROCESS CONSULTANT PO 12/23/16 03:00 12/27/16 02:59 12/23/16 14:27 (NS Flush) 2 ml BID IV FLUSH 12/23/16 21:00 (NS Flush) 2 ml UNSCH PRN IV FLUSH 12/23/16 13:30 (Mylicon Chew) 80 mg QID PRN PO 12/23/16 13:30 12/26/16 00:15 (Tylenol) 650 mg Q6H PRN PO 12/23/16 13:30 (Motrin) 600 mg Q6H PRN PO 12/23/16 13:30 12/26/16 00:15 (Percocet 5-325 Mg) 1 tab Q4H PRN PO 12/23/16 13:30 (Percocet 5-325 Mg) 2 tab Q4H PRN PO 12/23/16 13:30 12/26/16 00:15 (Denia-Colace) 2 tab Q12H PRN PO 12/23/16 13:30 12/26/16 00:15 (Ambien) 5 mg HS PRN PO 12/23/16 13:30 (Zofran Inj) 4 mg Q6H PRN IV PUSH 12/23/16 13:30 Fentanyl/ Bupivacaine HCl 100 ml @ 12 mls/hr TITRATE EPIDURAL 12/23/16 15:30 Assessment/Plan Assessment and Plan POD#3 normal post-op, discharge today RTO 1 week Discharge Planning routine Attending Attestation pt seen by Ana Spann MD Dec 26, 2016 08:07
[2016-12-26] MEDS ORDERED: SENN1TAB PO (08:08)
[2016-12-26] MEDS ORDERED: IBUP-232 PO (08:08)
== END 2016-12-26 14:34 | disposition home or self-care (01) | DRG 766 ==
LOC: HOBED 01:55 → H2EB 02:47 → H2EA 11:40 → H1EA 15:02
PROVIDERS: ADMIT Obstetrics & Gynecology; ATTEND Obstetrics & Gynecology
PROC: 10D00Z1 Extraction of Products of Conception, Low, Open Approach (ICD-10-PCS; principal; 2016-12-23)
DX: O64.0XX0 Obstructed labor due to incomplete rotation of fetal head, not applicable or unspecified (principal); O77.0 Labor and delivery complicated by meconium in amniotic fluid; Z37.0 Single live birth; Z3A.39 39 weeks gestation of pregnancy; O62.4 Hypertonic, incoordinate, and prolonged uterine contractions; O62.2 Other uterine inertia; O69.1XX0 Labor and delivery complicated by cord around neck, with compression, not applicable or unspecified
CPT/HCPCS: 59025; 81001; 82805; 85025; 86592; 86900; 86901; 90715; J0131; J0690; J2274; J2405; J2590; J3010; J3105; J7120

== ENCOUNTER 2017-03-30 14:51 | Emergency (ER) | payer OTHER ==
[~2017-03-30] VITALS: Ht 152.4 cm; Wt 56.8 kg
[~2017-03-30 14:51] MED LIST changes: -CLIN1CAP6 PO; +IBUP-232 PO; +OXYC1TAB63 PO; -PROM25TA5 PO; +SENN1TAB PO
[2017-03-30 14:53] VITALS: BP 120/63; PULSE 90; RESP 14; TEMP 99.1; O2SAT 97
--- NOTE | 2017-03-30 16:42 | PD ---
HPI Chief Complaint: Manager Process Improvement Problem/Complaint Time Seen by Provider: 16:20 Travel History International Travel<30 days: No Contact w/Intl Traveler<30days: No Traveled to known affect area: No History of Present Illness HPI 22-year-old female presents to the emergency Department with complaint of heavy vaginal bleeding that started yesterday. She is changing a medium-size pad every hour. Reports blood clots. Gave 3 months ago by section. Had a normal menses During March 07. Reports lower abdominal /pelvic cramping. Denies lightheadedness, dizziness. Denies dysuria, vaginal discharge or odor. Was treated for Chlamydia and bacterial vaginosis 2 weeks ago with symptoms that resolved. Discussed the pain as cramping. Rates it . Has taken ibuprofen for symptom management. No known Relieving factors. No known allergies. Primary care provider is Dr. Chau. Pin Inserter Regulator is [address] [place] [address]. Denies significant past medical history. PFSH Past Medical History Medical History: Denies Significant Hx Diminished Hearing: No Immunizations Current: No Tetanus Vaccination: < 5 Years Influenza Vaccination: Yes ?: Not LMP: 03/06/2017 : 1 Para: 1 Miscarriage: 1 : 0 Past Surgical History Section: Yes (X 1) Gynecologic Surgery: Yes ( ) Social History Alcohol Use: Yes (OCC) Tobacco Use: Yes (OCC ) Substance Use: Yes (MARIJUANA ) Allergies-Medications (Allergen,Severity, Reaction): Coded Allergies: No Known Allergies (Unverified Adverse Reaction, Unknown, 03/30/17) Reported Meds & Prescriptions Reported Meds & Active Scripts Active Ibuprofen 800 Mg Tab 800 Mg PO Q6HR PRN Keflex (Cephalexin) 500 Mg Cap 500 Mg PO Q12H 7 Days Review of Systems Except as stated in HPI: all other systems reviewed are Neg Physical Exam Narrative GENERAL: Well-nourished, well-developed black female patient, in no acute distress; afebrile, nontoxic-appearing SKIN: Warm and dry. HEAD: Atraumatic. Normocephalic. EYES: Pupils equal and round. No scleral icterus. No injection or drainage. ENT: Mucous membranes pink and moist. NECK: Trachea midline. No lymphadenopathy. CARDIOVASCULAR: Regular rate and rhythm. No murmur appreciated. RESPIRATORY: No accessory muscle use. Clear to auscultation. Breath sounds equal bilaterally. GASTROINTESTINAL: Abdomen soft, non-tender, nondistended. Bilateral pelvic region tender to palpation; left more than right. Mid pelvic region/bladder with tenderness on palpation. Hepatic and splenic margins not palpable. No guarding, rigidity, rebound tenderness. PELVIC: Exam done in the presence of a nurse. Speculum exam reveals nonedematous and nonerythematous cervix with large amount of dark red drainage.. Bimanual exam reveals no palpable masses or adnexa tenderness, no uterine tenderness. No cervical motion tenderness. BACK: No CVA tenderness. MUSCULOSKELETAL: No obvious deformities. No clubbing. No cyanosis. No edema. NEUROLOGICAL: Awake and alert. No obvious cranial nerve deficits. Motor grossly within normal limits. Normal speech. PSYCHIATRIC: Appropriate mood and affect; insight and judgment normal. Data Data Last Documented VS Vital Signs Date Time Temp Pulse Resp B/P (MAP) Pulse Ox O2 Delivery O2 Flow Rate FiO2 03/30/17 19:26 03/30/17 19:08 14 03/30/17 19:07 87 99 Room Air 03/30/17 14:53 99.1 Orders Orders Complete Blood Count With Diff (03/30/17 15:01) Basic Metabolic Panel (Bmp) (03/30/17 15:01) Urinalysis - C+S If Indicated (03/30/17 15:01) Ed Urine Pregnancytest Poc (03/30/17 15:01) Gc And Chlamydia Pcr (03/30/17 16:54) Wet Prep Profile (03/30/17 16:54) Us Pelvis Comp W Doppler (03/30/17 16:54) Urine Culture (03/30/17 15:50) Ed Discharge Order (03/30/17 18:47) Ibuprofen (Motrin) (03/30/17 19:00) Cephalexin (Keflex) (03/30/17 19:00) Labs Laboratory Tests Test 03/30/17 15:50 03/30/17 15:56 03/30/17 18:30 Urine Color RED Urine Turbidity HAZY Urine pH 6.0 Urine Specific [place] 1.026 Urine Protein 300 mg/dL Urine Glucose (UA) NEG mg/dL Urine Ketones 10 mg/dL Urine Occult Blood LARGE Urine Nitrite NEG Urine Bilirubin NEG Urine Urobilinogen 2.0 MG/DL Urine Leukocyte Esterase SMALL Urine RBC /hpf Urine WBC /hpf Urine Squamous Epithelial Cells 16 /hpf Urine Bacteria FEW /hpf Microscopic Urinalysis Comment CULTURE INDICATED White Blood Count 10.6 TH/MM3 Red Blood Count 3.76 MIL/MM3 Hemoglobin 12.2 GM/DL Hematocrit 35.6 % Mean Corpuscular Volume 94.8 FL Mean Corpuscular Hemoglobin 32.3 PG Mean Corpuscular Hemoglobin Concent 34.1 % Red Cell Distribution Width 13.1 % Platelet Count 295 TH/MM3 Mean Platelet Volume 7.9 FL Neutrophils (%) (Auto) 77.5 % Lymphocytes (%) (Auto) 12.7 % Monocytes (%) (Auto) 7.2 % Eosinophils (%) (Auto) 2.0 % Basophils (%) (Auto) 0.6 % Neutrophils # (Auto) 8.2 TH/MM3 Lymphocytes # (Auto) 1.3 TH/MM3 Monocytes # (Auto) 0.8 TH/MM3 Eosinophils # (Auto) 0.2 TH/MM3 Basophils # (Auto) 0.1 TH/MM3 CBC Comment DIFF FINAL Differential Comment Blood Urea Nitrogen 5 MG/DL Creatinine 0.59 MG/DL Random Glucose 91 MG/DL Calcium Level 8.7 MG/DL Sodium Level 138 MEQ/L Potassium Level 3.5 MEQ/L Chloride Level 105 MEQ/L Carbon Dioxide Level 27.9 MEQ/L Anion Gap 5 MEQ/L Estimat Glomerular Filtration Rate 152 ML/MIN Clue Cells (Wet Prep) NONE SEEN Vaginal Trichomonas (Wet Prep) NONE SEEN Vaginal Yeast (Wet Prep) NONE SEEN Chlamydia trachomatis DNA (PCR) DETECTED Neisseria gonorrhoeae DNA (PCR) NOT DETECTED MDM Medical Decision Making Medical Screen Exam Complete: Yes Emergency Medical Condition: Yes Medical Record Reviewed: Yes Differential Diagnosis Menorrhagia, dysmenorrhea, vaginal bleeding, retained placenta, chlamydia, gonorrhea, PID Narrative Course 22-year-old female with vaginal bleeding since yesterday. Gave by section 3 months ago. Had a normal menses around March 07. UPT negative. I discussed the patient with Dr. Maria, the attending physician, and she recommends pelvic ultrasound. CBC, CMP, lipase, urinalysis, UPT ordered. 175: CBC unremarkable. BMP unremarkable. Urinalysis with signs of infection ; innumerable red blood cells and white cells. 1829: JEWEL [employer]AT SURFACER unremarkable. BMP unremarkable. Pelvic ultrasound concludes: Pelvis Ultrasound 03/30/17 7795 Signed Impressions: Service Date/Time: Thursday, March 30, 2017 17:17 - CONCLUSION: 1. Complex 4.4 cm likely hemorrhagic left ovarian cyst. 2. Trace pelvic free fluid, likely physiologic. 3. Otherwise, unremarkable pelvic ultrasound examination. No further imaging follow-up is recommended for typical-appearing hemorrhagic adnexal cysts <5 cm in women of reproductive age. Reference: Patricia Madrid MD Discussed ultrasound findings and patient provided a copy of the report. Discussed the patient with my attending physician, Dr. Maria, and she agrees with discharge and follow up outpatient with gynecology. Patient states she will call gynecology tomorrow and make an appointment. Keflex and ibuprofen administered in the ER prior to discharge. Keflex and ibuprofen prescribed for home. Discussed reasons detailed return to the emergency department. Instructed patient to follow up with primary care provider. Patient verbalizes understanding and agreement with treatment plan. Patient is medically cleared and stable for discharge. Discussed reasons to return to the emergency department. Patient agrees with treatment plan. The patients vital signs are stable and the patient is stable for outpatient follow-up and treatment. Patient discharged home, stable and in no acute distress. Diagnosis Primary Impression: Hemorrhagic cyst of left ovary Additional Impression: UTI (urinary tract infection) Qualified Codes: N39.0 - Urinary tract infection, site not specified; R31.9 - Hematuria, unspecified Referrals: Pin Inserter Regulator Primary Care Physician Patient Instructions: General Instructions, Ovarian Cyst (ED), Ruptured Ovarian Cyst (ED), Urinary Tract Infection in Women (ED) Additional Instructions: Tylenol as directed and as needed for pain Antibiotics as prescribed for her symptoms of UTI Take antibiotics as prescribed and complete full course Drink plenty of fluids Maintain good personal hygiene Follow-up Primary care provider Follow-up with supervisor brine/OB in one day Return to the emergency department immediately with worsening symptoms Med/Other Pt SpecificInfo: Prescription(s) given Scripts Ibuprofen (Ibuprofen) 800 Mg Tab 800 MG PO Q6HR Y for PAIN, #20 TAB 0 Refills Prov: Darleen Huerta 03/30/17 Cephalexin (Keflex) 500 Mg Cap 500 MG PO Q12H for Infection for 7 Days, #14 CAP 0 Refills Prov: Darleen Huerta 03/30/17 Disposition: 01 DISCHARGE HOME Condition: Stable Darleen HuertaP Mar 30, 2017 16:42
[2017-03-30 16:53] LABS: AUTOMATED NEUTROPHIL # 8.2 TH/MM3 (1.8-7.7); BASOPHIL # 0.1 TH/MM3 (0-0.2); BASOPHIL % 0.6 % (0.0-2.0); EOSINOPHIL # 0.2 TH/MM3 (0-0.4); HEMATOCRIT 35.6 % (35.0-46.0); HEMOGLOBIN 12.2 GM/DL (11.6-15.3); LYMPH % 12.7 % (9.0-44.0); LYMPHOCYTE # 1.3 TH/MM3 (1.0-4.8); MEAN CELL VOLUME 94.8 FL (80.0-100.0); MEAN CORPUSCULAR HEMOGLOBIN 32.3 PG (27.0-34.0); MEAN CORPUSCULAR HGB CONC 34.1 % (32.0-36.0); MEAN PLATELET VOLUME 7.9 FL (7.0-11.0); MONO % 7.2 % (0.0-8.0); MONOCYTE # 0.8 TH/MM3 (0-0.9); NEUT % 77.5 % (16.0-70.0); PLATELET COUNT 295 TH/MM3 (150-450); RED BLOOD COUNT 3.76 MIL/MM3 (4.00-5.30); RED CELL DISTRIBUTION WIDTH 13.1 % (11.6-17.2); WHITE BLOOD COUNT 10.6 TH/MM3 (4.0-11.0)
[2017-03-30 17:13] LABS: BICARBONATE 27.9 MEQ/L (21.0-32.0); CALCIUM 8.7 MG/DL (8.5-10.1); CREATININE 0.59 MG/DL (0.50-1.00)
[2017-03-30 17:15] LABS: BACTERIA, URINE FEW /hpf; BILIRUBIN, URINE NEG (NEG); BLOOD, URINE LARGE (NEG); GLUCOSE,URINE NEG (NEG); KETONE, URINE 10 mg/dL (NEG); NITRITE,URINE NEG (NEG); SQUAMOUS EPITHELIAL CELL URINE 16 /hpf (0-5); URINE LEUKOCYTE ESTERASE SMALL (NEG)
[2017-03-30 17:16] LABS: URINE COLOR RED (YELLW/STRAW)
--- NOTE | 2017-03-30 18:02 | RADRPT ---
EXAM DATE/TIME: 03/30/2017 17:17 [place] COMPARISON: No previous studies available for comparison. INDICATIONS : Bleeding. MEDICAL HISTORY : Substance use. Tobacco use. SURGICAL HISTORY : section. ENCOUNTER: Subsequent ACUITY: 2 days PAIN SCORE: 7/10 LOCATION: Bilateral pelvis MEASUREMENTS: UTERUS: 10.0 x 7.0 x 4.1 cm ENDOMETRIAL STRIPE: 8 mm RIGHT OVARY: 4.6 x 2.5 x 2.3 cm LEFT OVARY: 5.6 x 4.6 x 4.5 cm FINDINGS: UTERUS: The myometrium has homogeneous echotexture without mass. RIGHT OVARY: Ovary contains no mass or significant cystic lesion. Small 1.1 x 1.1 x 0.8 cm cyst. Intact vascularity. LEFT OVARY: Ovary contains no mass. 4.4 x 4.2 x 3.7 cm complex left ovarian cyst with no si gnificant increased flow and concave margins. Intact vascularity. MISCELLANEOUS: Trace pelvic free fluid. CONCLUSION: 1. Complex 4.4 cm likely hemorrhagic left ovarian cyst. 2. Trace pelvic free fluid, likely physiologic. 3. Otherwise, unremarkable pelvic ultrasound examination. No further imaging follow-up is recommended for typical-appearing hemorrhagic adnexal cysts <5 cm in women of reproductive age. Reference: Patricia Madrdi MD, et al. Management of Asymptomatic Ovaria n and Other Adnexal Cysts Imaged at Ultrasound: Society of Radiologists in Ultrasound Consensus Confe rence Statement. Radiology 2010; [id number]. Dk Haynes MD on March 30, 2017 at 17:55 Board Certified Radiologist. This report was verified electronically.
[2017-03-30] MEDS ORDERED: CEPH-460 PO (18:43)
[2017-03-30] MEDS ORDERED: IBUP1TAB7 PO (18:45)
[2017-03-30] MEDS ORDERED: IBUPROFEN 800 MG TAB PO ONE (19:00)
[2017-03-30] MEDS ORDERED: CEPHALEXIN MONOHYDRATE 500 MG CAP PO ONE (19:00)
[2017-03-30 19:07] VITALS: BP 123/68; PULSE 87; RESP 14; O2SAT 99
== END 2017-03-30 19:27 | disposition home or self-care (01) ==
LOC: NEPD 14:51
DX: N83.292 Other ovarian cyst, left side (principal); N39.0 Urinary tract infection, site not specified; B96.89 Other specified bacterial agents as the cause of diseases classified elsewhere; R31.9 Hematuria, unspecified; Z72.0 Tobacco use
CPT/HCPCS: 76856; 80048; 81001; 84703; 85025; 87086; 87210; 87491; 87591; 93975